=== PATIENT | male | born 1995 | race Caucasian/White ===

== ENCOUNTER 2018-05-29 18:20 | Inpatient (IN) | payer MEDICAID, OTHER ==
[~2018-05-29] VITALS: Ht 180.3 cm; Wt 80.5 kg
[~2018-05-29 18:20] MED LIST: DIPH25 PO; RISP4TAB63 PO; RIT20 PO
[2018-05-29] MEDS ORDERED: HYDR-4455 PO (18:47)
[2018-05-29] MEDS ORDERED: ARIP5TAB8 PO (18:47)
[2018-05-29 19:01] LABS: BASOPHILS % (AUTO) 0.9 % (0.0-2.0); HEMATOCRIT 40.8 % (41-53); LYMPHOCYTES % (AUTO) 25.3 % (22.0-44.0); MEAN CORPUSCULAR HEMOGLOBIN 32.1 pg (26.0-34.0); MEAN CORPUSCULAR HGB CONC 34.3 G/dL (31.0-37.0); MEAN CORPUSCULAR VOLUME 94 fL (80-100); MONOCYTES # (AUTO) 0.9 K/uL (0.1-1.0); MONOCYTES % (AUTO) 12.1 % (2.0-9.0); NEUTROPHILS # (AUTO) 4.8 K/uL (1.8-7.7); NEUTROPHILS % (AUTO) 60.7 % (40.0-70.0); PLATELET COUNT (AUTO) 173 K/uL (150-450); RED BLOOD CELL COUNT(AUTO) 4.36 MIL/uL (4.50-5.90); RED CELL DISTRIBUTION WIDTH 12.9 % (11.5-14.5)
[2018-05-29 19:30] LABS: AMPHET/METH SCREEN,URINE NEGATIVE (NEGATIVE); BARBITURATE SCREEN, URINE NEGATIVE (NEGATIVE); BENZODIAZEPINES SCREEN,URINE NEGATIVE (NEGATIVE); CANNABINOID SCREEN,URINE NEGATIVE (NEGATIVE); COCAINE SCREEN,URINE NEGATIVE (NEGATIVE); METHADONE SCREEN, URINE NEGATIVE (NEGATIVE); OPIATE SCREEN,URINE NEGATIVE (NEGATIVE)
[2018-05-29 19:39] LABS: PHENCYCLIDINE SCREEN,URINE NEGATIVE (NEGATIVE)
[2018-05-29 19:56] LABS: ALANINE AMINOTRANSFERASE 25 U/L (12-78); ALBUMIN 3.5 g/dL (3.4-5.0); ALKALINE PHOSPHATASE 105 U/L (46-116); ANION GAP 9 mmol/L (8-16); ASPARTATE AMINOTRANSFERASE 17 U/L (15-37); BILIRUBIN,TOTAL 0.3 mg/dL (0.1-1.0); CALCIUM, TOTAL 8.3 mg/dL (8.8-10.5); CARBON DIOXIDE 28 mmol/L (22-29); CHLORIDE 111 mmol/L (98-107); CREATININE 0.59 mg/dL (0.60-1.30); GLOMERULAR FILTR. RATE CALC > 60 mL/min (>60); GLUCOSE,RANDOM 98 mg/dL (70-110); POTASSIUM 4.2 mmol/L (3.5-5.1); SODIUM SERUM 148 mmol/L (136-145); TOTAL PROTEIN, SERUM 6.7 g/dL (6.4-8.2); UREA NITROGEN, BLOOD 19 mg/dL (7-18)
[2018-05-29] MEDS ORDERED: DiphenhydrAMINE HCL 50 MG/ML VIAL IM ONE (20:30)
[2018-05-29] MEDS ORDERED: HALOPERIDOL LACTATE 5 MG/ML VIAL IM ONE (20:30)
[2018-05-29] MEDS ORDERED: LORazepam 2 MG/ML VIAL IM ONE (20:30)
[2018-05-29 21:39] LABS: APPEARANCE,URINE TURBID (CLEAR); BILIRUBIN,URINE NEGATIVE (NEGATIVE); GLUCOSE, URINE (UA) NEGATIVE (NEGATIVE); KETONES,URINE NEGATIVE (NEGATIVE); LEUKOCYTE ESTERASE ,URINE NEGATIVE (NEGATIVE); NITRATE,URINE NEGATIVE (NEGATIVE); OCCULT BLOOD,URINE NEGATIVE (NEGATIVE); PH,URINE 5.5 (5.0-8.0); PROTEIN,URINE NEGATIVE (NEGATIVE); UROBILINOGEN,URINE 0.2 mg/dL (<=1.0)
[2018-05-30] MEDS ORDERED: KETOROLAC TROMETHAMINE 60 MG/2 ML VIAL IM ONE (05:45)
[2018-05-30] MEDS ORDERED: LORazepam 2 MG/ML VIAL IM ONE (06:45)
[2018-05-30] MEDS ORDERED: DiphenhydrAMINE HCL 50 MG/ML VIAL IM ONE (06:45)
[2018-05-30] MEDS ORDERED: HALOPERIDOL LACTATE 5 MG/ML VIAL IM ONE (06:45)
[2018-05-30 08:24] LABS: CHOL/HDL RATIO 2.1 (4.2-7.3); FREE T4 (FREE THYROXINE) 0.73 ng/dL (0.76-1.46); THYROID STIMULATING HORMONE 1.64 uIU/mL (0.36-3.74)
[2018-05-30 18:55] VITALS: BP 136/62
[2018-05-30] MEDS ORDERED: RISP2 PO (19:44)
[2018-05-30] MEDS ORDERED: CloNIDine HCL 0.1 MG TABLET PO PRN (19:45)
[2018-05-30] MEDS ORDERED: GuaiFENesin/D-METHORPHAN [SUGAR-FREE] 200-20MG/10 ML SYRUP UDCUP PO PRN (19:45)
[2018-05-30] MEDS ORDERED: MAGNESIUM HYDROXIDE SUSPENSION 30 ML UDCUP PO PRN (19:45)
[2018-05-30] MEDS ORDERED: NICOTINE 14 MG/24 HOUR PATCH TD PRN (19:45)
[2018-05-30] MEDS ORDERED: MAG HYDROX/AL HYDROX/SIMETH ES 30 ML SUSPENSION UDCUP PO PRN (19:45)
[2018-05-30] MEDS ORDERED: ALBUTEROL SULFATE HFA 90 MCG/PUFF 8 GM INHALER IH PRN (19:45)
[2018-05-30] MEDS ORDERED: DOCUSATE SODIUM 100 MG CAPSULE PO PRN (19:45)
[2018-05-30] MEDS ORDERED: ONDANSETRON HCL 4 MG TABLET PO PRN (19:45)
[2018-05-30] MEDS ORDERED: LOPERAMIDE HCL 2 MG CAPSULE PO PRN (19:45)
[2018-05-30] MEDS ORDERED: PETROLATUM,WHITE 71 GM JELLY TP PRN (19:45)
[2018-05-30] MEDS: ZOLPIDEM TARTRATE 10 MG TABLET PO PRN (20:36)
[2018-05-30 21:31] VITALS: BP 128/60
[2018-05-30] MEDS: LORazepam 2 MG TABLET PO PRN (21:34)
[2018-05-30] MEDS: IBUPROFEN 400 MG TABLET PO PRN (21:34)
[2018-05-30 22:27] VITALS: BP 136/81
[2018-05-31] VITALS (11 sets, daily range): BP systolic 101–138; BP diastolic 58–88
[2018-05-31] MEDS: ACETAMINOPHEN 325 MG TABLET PO PRN ×2 (03:09→23:55)
[2018-05-31] MEDS: LORazepam 2 MG TABLET PO PRN ×4 (03:09→23:55)
[2018-05-31] MEDS: HALOPERIDOL 5 MG TABLET PO PRN ×3 (03:09→23:55)
[2018-05-31] MEDS: IBUPROFEN 400 MG TABLET PO PRN ×2 (08:34→18:00)
[2018-05-31 09:24] LABS: CHOL/HDL RATIO 2.7 (4.2-7.3); THYROID STIMULATING HORMONE 2.4 uIU/mL (0.36-3.74)
[2018-05-31] MEDS: ARIPiprazole 10 MG TABLET PO SCH (12:21)
[2018-05-31] MEDS: ZOLPIDEM TARTRATE 10 MG TABLET PO PRN (20:18)
[2018-05-31] MEDS: MIRTAZAPINE 15 MG TABLET PO SCH (20:18)
[2018-06-01 00:30] VITALS: BP 110/72
[2018-06-01 08:00] VITALS: BP 106/57
[2018-06-01 08:19] VITALS: BP 106/57
[2018-06-01] MEDS: ARIPiprazole 10 MG TABLET PO SCH (08:36)
[2018-06-01] MEDS: IBUPROFEN 400 MG TABLET PO PRN ×2 (09:24→17:36)
[2018-06-01] MEDS: LORazepam 2 MG TABLET PO PRN ×3 (10:32→20:47)
[2018-06-01 16:00] VITALS: BP 110/65
[2018-06-01] MEDS: HALOPERIDOL 5 MG TABLET PO PRN (16:47)
[2018-06-01] MEDS: MIRTAZAPINE 15 MG TABLET PO SCH (20:47)
[2018-06-01] MEDS: ZOLPIDEM TARTRATE 10 MG TABLET PO PRN (20:47)
[2018-06-02 01:33] VITALS: BP 113/77
[2018-06-02 05:10] VITALS: BP 118/82
[2018-06-02] MEDS: IBUPROFEN 400 MG TABLET PO PRN (05:14)
[2018-06-02] MEDS: ACETAMINOPHEN 325 MG TABLET PO PRN (06:50)
[2018-06-02 08:00] VITALS: BP 121/79
[2018-06-02 08:05] VITALS: BP 111/60
[2018-06-02] MEDS: ARIPiprazole 10 MG TABLET PO SCH (08:33)
[2018-06-02] MEDS ORDERED: MIRT15 PO (11:05)
== END 2018-06-02 13:15 | disposition home or self-care (01) | DRG 750 ==
LOC: EMS 18:20 → B3A 05-30 17:34
PROVIDERS: ADMIT Psychiatry & Neurology Psychiatry; ATTEND Psychiatry & Neurology Psychiatry
DX: F25.0 Schizoaffective disorder, bipolar type (principal); R45.851 Suicidal ideations; E87.1 Hypo-osmolality and hyponatremia; G40.909 Epilepsy, unspecified, not intractable, without status epilepticus; F12.90 Cannabis use, unspecified, uncomplicated; F41.9 Anxiety disorder, unspecified; R45.87 Impulsiveness; R45.84 Anhedonia; F10.10 Alcohol abuse, uncomplicated
CPT/HCPCS: 83036; 84439; 84443; 90686; 96372; G0480; J1200; J1630; J1885; J2060